=== PATIENT | male | born 1955 | race African-American/Black ===

== ENCOUNTER 2024-11-17 21:42 | Inpatient (IN) | payer OTHER, MEDICARE ==
[~2024-11-17] VITALS: Ht 182.9 cm; Wt 108.4 kg
[~2024-11-17 21:42] MED LIST: COR12 PO; COR6 PO; DIGO-34 PO; DILT30TA37 PO; DILT60TA35 PO; IMOD PO; LISI40TA21 PO; RIVA20TA PO
[2024-11-17 22:17] VITALS: O2SAT 98
[2024-11-17 23:09] LABS: BASOPHILS % 0.4 % (0.0-2.0); EOSINOPHILS % 2.5 % (0.0-5.0); HEMATOCRIT. 42.3 % (42.0-52.0); HEMOGLOBIN. 14.1 g/dL (14.0-18.0); LYMPHOCYTES % 20.9 % (20.0-50.0); MEAN PLATELET VOLUME 7.9 fl (7.4-10.4); MONOCYTES % 10.0 % (2.0-8.0); NEUTROPHILS % 66.2 % (40.0-76.0); PLATELET 396 x1000/uL (130-400); RED BLOOD CELL COUNT 4.40 mill/uL (4.7-6.1); RED CELL DISTRIBUTION WIDTH 13.8 % (11.6-14.6)
[2024-11-17 23:23] LABS: CREATININE 1.4 mg/dL (0.6-1.3); TROPONIN I HIGH SENSITIVITY 21 ng/L (3.0-53); UREA NITROGEN BLOOD 15 mg/dL (9-23)
[2024-11-17 23:25] LABS: ASPARTATE AMINOTRANSFERASE 19 IU/L (<34); BILIRUBIN DIRECT 0.3 mg/dL (<=3.0); BILIRUBIN TOTAL 0.7 mg/dL (0.1-1.0); PROTEIN TOTAL 8.4 g/dL (6.0-8.3)
[2024-11-18] VITALS (7 sets, daily range): BP systolic 97–121; BP diastolic 50–80; PULSE 59–96; RESP 17–18; TEMP 36.1956–37.3; O2SAT 96–100
[2024-11-18] MEDS ORDERED: SACU1TAB7 PO (00:17)
[2024-11-18] MEDS ORDERED: ATOR10TA69 PO (00:17)
[2024-11-18] MEDS ORDERED: SPIR25TA6 PO (00:17)
[2024-11-18] MEDS ORDERED: DAPA10TA PO (00:17)
[2024-11-18] MEDS ORDERED: METF-1149 PO (00:17)
[2024-11-18] MEDS ORDERED: AMLO10TA80 PO (00:17)
[2024-11-18] MEDS ORDERED: FURO40TA5 PO (00:17)
[2024-11-18] MEDS ORDERED: RIVAROXABAN 10 MG TABLET PO ONE (00:30)
[2024-11-18] MEDS: ATORVASTATIN CALCIUM 10MG TABLET PO ONE (00:55)
[2024-11-18] MEDS: DIGOXIN 125MCG TABLET PO ONE (00:55)
[2024-11-18] MEDS: RIVAROXABAN 20 MG TABLET PO NR (00:55)
[2024-11-18] MEDS: CARVEDILOL 12.5MG TABLET PO ONE (00:55)
[2024-11-18 01:12] LABS: TROPONIN I HIGH SENSITIVITY 19 ng/L (3.0-53)
[2024-11-18 01:12] LABS: CLARITY URINE CLOUDY (CLEAR); COLOR URINE YELLOW (YELLOW); GLUCOSE URINE 3+ (NEGATIVE); KETONES URINE NEGATIVE (NEGATIVE); LEUKOCYTE ESTERASE URINE 2+ (NEGATIVE); NITRITE URINE POSITIVE (NEGATIVE); OCCULT BLOOD URINE 1+ (NEGATIVE); PH URINE 5.5 (4.5-8.0); PROTEIN URINE TRACE (NEGATIVE); SPECIFIC GRAVITY URINE 1.034 (1.005-1.030); UROBILINOGEN URINE 1.0 E.U./dL (0.2-1.0)
[2024-11-18] MEDS: IOHEXOL-300 100 ML BOTTLE ONE (01:27)
[2024-11-18] MEDS: CEFTRIAXONE 1GM/50ML 50 ML IV NR (02:07)
[2024-11-18 02:43] LABS: RBC URINE 0-2 /hpf (0-2); WBC URINE TNTC /hpf (0-2)
[2024-11-18 02:44] LABS: BACTERIA URINE 2+; SQUAMOUS EPITHELIAL CELL URINE FEW /lpf (RARE/1+)
[2024-11-18] MEDS ORDERED: CLONIDINE 0.1MG TABLET PO PRN (08:15)
[2024-11-18] MEDS ORDERED: ONDANSETRON HCL 4MG/2ML INJ IV PRN (08:15)
[2024-11-18] MEDS ORDERED: DOCUSATE SODIUM 100MG CAPSULE PO PRN (08:15)
[2024-11-18] MEDS ORDERED: DEXTROSE 50% WATER 50ML SYRINGE IV PRN (08:15)
[2024-11-18] MEDS ORDERED: GUAIFENESIN 200MG/10ML SUGAR FREE UDC PO PRN (08:15)
[2024-11-18] MEDS ORDERED: IPRATROPIUM/ALBUTEROL 0.5-3(2.5)MG/3ML NEB HHN PRN (08:15)
[2024-11-18] MEDS ORDERED: ACETAMINOPHEN 325MG TABLET PO PRN (08:15)
[2024-11-18] MEDS: SODIUM CHLORIDE 0.9% 1,000 ML IV SCH (09:36)
[2024-11-18] MEDS: SACUBITRIL/VALSARTAN 49MG/51MG TABLET PO SCH (10:00)
[2024-11-18] MEDS: FUROSEMIDE 40MG TABLET PO SCH (10:00)
[2024-11-18] MEDS: ENOXAPARIN 30MG/0.3ML SYR SUBCUT SCH (10:51)
[2024-11-18 10:55] LABS: *AMPHETAMINES SCREEN URINE NEGATIVE (NEGATIVE); *BARBITURATES SCREEN URINE NEGATIVE (NEGATIVE); *BENZODIAZEPINES SCREEN URINE NEGATIVE (NEGATIVE); *COCAINE SCREEN URINE NEGATIVE (NEGATIVE); CANNABINOID URINE SCREEN NEGATIVE (NEGATIVE); METHADONE URINE SCREEN NEGATIVE (NEGATIVE); OPIATES URINE SCREEN NEGATIVE (NEGATIVE); PHENCYCLIDINE URINE SCREEN NEGATIVE (NEGATIVE)
[2024-11-18 10:56] LABS: ECSTASY MDMA SCREEN URINE NEGATIVE (NEGATIVE)
[2024-11-18] MEDS: BLOOD SUGAR DIAGNOSTIC STRIP TEST SCH (12:10)
[2024-11-18] MEDS: INSULIN LISPRO 100 UNITS/ML SUBCUT SCH (12:40)
[2024-11-18] MEDS: TRIAMCINOLONE ACETONIDE 0.1 % OINT 15GM TOP SCH (15:10)
[2024-11-18] MEDS ORDERED: RIVAROXABAN 10 MG TABLET PO SCH (17:00)
[2024-11-18] MEDS: DILTIAZEM HCL 30MG TABLET PO SCH (18:30)
[2024-11-18] MEDS: CARVEDILOL 12.5MG TABLET PO SCH (20:53)
[2024-11-18 21:00] LABS: TROPONIN I HIGH SENSITIVITY 20 ng/L (3.0-53)
[2024-11-18] MEDS: PIPERACILLIN/TAZO 3.375G/50ML 50 ML IV SCH (21:09)
[2024-11-19] MEDS ORDERED: CEFTRIAXONE 1GM/50ML 50 ML IV SCH ×2 (01:00→08:00)
[2024-11-19 04:00] VITALS: BP 96/64; PULSE 62; RESP 18; TEMP 36.5; O2SAT 99
[2024-11-19] MEDS: ACETAMINOPHEN 325MG TABLET PO PRN (04:48)
[2024-11-19 07:43] LABS: BASOPHILS % 0.1 % (0.0-2.0); EOSINOPHILS % 1.8 % (0.0-5.0); HEMATOCRIT. 38.8 % (42.0-52.0); HEMOGLOBIN. 13.1 g/dL (14.0-18.0); LYMPHOCYTES % 7.2 % (20.0-50.0); MEAN PLATELET VOLUME 8.4 fl (7.4-10.4); MONOCYTES % 7.1 % (2.0-8.0); NEUTROPHILS % 83.8 % (40.0-76.0); PLATELET 317 x1000/uL (130-400); RED BLOOD CELL COUNT 4.12 mill/uL (4.7-6.1); RED CELL DISTRIBUTION WIDTH 13.5 % (11.6-14.6)
[2024-11-19 08:00] VITALS: BP 108/56; PULSE 89; RESP 20; TEMP 36.3; O2SAT 100
[2024-11-19 08:10] LABS: CREATININE 1.1 mg/dL (0.6-1.3)
[2024-11-19 08:11] LABS: LDL CHOLESTEROL 73 mg/dL (5-100); TRIGLYCERIDE 105 mg/dL (0-150); TROPONIN I HIGH SENSITIVITY 18 ng/L (3.0-53); UREA NITROGEN BLOOD 13 mg/dL (9-23)
[2024-11-19 08:12] LABS: ASPARTATE AMINOTRANSFERASE 27 IU/L (<34)
[2024-11-19 08:13] LABS: BILIRUBIN DIRECT 0.5 mg/dL (<=3.0); BILIRUBIN TOTAL 1.2 mg/dL (0.1-1.0); PROTEIN TOTAL 7.1 g/dL (6.0-8.3)
[2024-11-19 08:14] LABS: T4 FREE 1.26 ng/dL (0.89-1.76)
[2024-11-19] MEDS: TAMSULOSIN HCL 0.4MG SR CAPSULE PO SCH (08:36)
[2024-11-19 09:15] LABS: INR 1.2
[2024-11-19 11:44] VITALS: BP 115/58; PULSE 91; RESP 18; TEMP 36.6; O2SAT 98
[2024-11-19] MEDS: DILTIAZEM HCL 60MG TABLET PO SCH (11:45)
[2024-11-19] MEDS: MEGESTROL ACETATE 400 MG/10 ML UDC PO SCH (11:45)
[2024-11-19] MEDS ORDERED: DILTIAZEM HCL 60MG TABLET PO SCH (12:00)
[2024-11-19] MEDS: FUROSEMIDE 40MG TABLET PO SCH (13:14)
[2024-11-19 15:45] VITALS: BP 100/56; PULSE 90; RESP 17; TEMP 36.7; O2SAT 99
[2024-11-19 20:00] VITALS: BP 98/49; PULSE 92; RESP 18; TEMP 36.7; O2SAT 98
[2024-11-20 00:17] VITALS: BP 116/60; PULSE 83; RESP 18; TEMP 37; O2SAT 98
[2024-11-20 04:00] VITALS: BP 112/61; PULSE 86; RESP 16; TEMP 36.2; O2SAT 99
[2024-11-20 08:00] VITALS: BP 111/68; PULSE 104; RESP 18; TEMP 36.6; O2SAT 100
[2024-11-20 08:13] LABS: BASOPHILS % 0.3 % (0.0-2.0); EOSINOPHILS % 2.9 % (0.0-5.0); HEMATOCRIT. 36.0 % (42.0-52.0); HEMOGLOBIN. 12.0 g/dL (14.0-18.0); LYMPHOCYTES % 24.0 % (20.0-50.0); MEAN PLATELET VOLUME 8.0 fl (7.4-10.4); MONOCYTES % 10.7 % (2.0-8.0); NEUTROPHILS % 62.1 % (40.0-76.0); PLATELET 292 x1000/uL (130-400); RED BLOOD CELL COUNT 3.78 mill/uL (4.7-6.1); RED CELL DISTRIBUTION WIDTH 13.7 % (11.6-14.6)
[2024-11-20 08:27] LABS: CREATININE 1.1 mg/dL (0.6-1.3); UREA NITROGEN BLOOD 14 mg/dL (9-23)
[2024-11-20] MEDS ORDERED: GADOTERATE MEGLUMINE 5 MMOL/10 ML VIAL IV ONE (11:10)
[2024-11-20 12:00] VITALS: BP 115/62; PULSE 98; RESP 18; TEMP 36.8; O2SAT 99
[2024-11-20 16:00] VITALS: BP 119/73; PULSE 100; RESP 18; TEMP 36.6; O2SAT 96
[2024-11-20 20:00] VITALS: BP 110/81; PULSE 69; RESP 16; TEMP 36.5; O2SAT 100
[2024-11-21] VITALS (50 sets, daily range): BP systolic 71–168; BP diastolic 41–146; PULSE 82–148; RESP 11–28; TEMP 36.1–37.3; O2SAT 96–100
[2024-11-21] MEDS ORDERED: SODIUM CHLORIDE 0.9% 250 ML IV ONE (05:35)
[2024-11-21] MEDS: SODIUM CHLORIDE 0.9% 250 ML IV ONE (06:15)
[2024-11-21] MEDS ORDERED: NOREPINEPHRINE 32 MG in DEXT 5% WATER 218 ML IV PRN (06:30)
[2024-11-21 06:34] LABS: BASOPHILS % 0.3 % (0.0-2.0); EOSINOPHILS % 2.3 % (0.0-5.0); HEMATOCRIT. 37.6 % (42.0-52.0); HEMOGLOBIN. 12.5 g/dL (14.0-18.0); LYMPHOCYTES % 24.3 % (20.0-50.0); MEAN PLATELET VOLUME 7.8 fl (7.4-10.4); MONOCYTES % 12.0 % (2.0-8.0); NEUTROPHILS % 61.1 % (40.0-76.0); PLATELET 272 x1000/uL (130-400); RED BLOOD CELL COUNT 4.00 mill/uL (4.7-6.1); RED CELL DISTRIBUTION WIDTH 13.5 % (11.6-14.6)
[2024-11-21 06:50] LABS: CREATININE 1.1 mg/dL (0.6-1.3); UREA NITROGEN BLOOD 15 mg/dL (9-23)
[2024-11-21 06:52] LABS: ASPARTATE AMINOTRANSFERASE 13 IU/L (<34); BILIRUBIN TOTAL 0.6 mg/dL (0.1-1.0); PROTEIN TOTAL 7.1 g/dL (6.0-8.3)
[2024-11-21] MEDS ORDERED: NOREPINEPHRINE 8MG/250ML PMX 250 ML IV ONE (07:58)
[2024-11-21] MEDS ORDERED: ROCURONIUM BROMIDE 10MG/ML VIAL 5ML IV ONE (08:04)
[2024-11-21] MEDS ORDERED: ALBUMIN HUMAN 12.5G/250ML (5%) IV ONE (08:10)
[2024-11-21] MEDS ORDERED: PROPOFOL 10MG/ML 100ML 100 ML IV ONE (08:12)
[2024-11-21] MEDS ORDERED: PHENYLEPHRINE HCL 10MG/ML 1ML IV ONE (08:28)
[2024-11-21] MEDS ORDERED: ACETAMINOPHEN 1000MG/100ML 100 ML IV ONE (08:41)
[2024-11-21] MEDS ORDERED: KETAMINE HCL 50 MG/ML 10ML ONE (08:41)
[2024-11-21] MEDS ORDERED: CALCIUM CHLORIDE 1GM/10ML SYR IV ONE (08:43)
[2024-11-21] MEDS ORDERED: ALBUMIN HUMAN 12.5GM/50ML (25%) IV ONE ×2 (08:52)
[2024-11-21] MEDS ORDERED: DEXAMETHASONE 4MG/ML 1ML VIAL ONE (09:11)
[2024-11-21] MEDS ORDERED: ONDANSETRON HCL 4MG/2ML INJ ONE (09:11)
[2024-11-21] MEDS ORDERED: FUROSEMIDE 40MG/4ML VIAL ONE (09:12)
[2024-11-21] MEDS ORDERED: LEVOFLOXACIN 500MG PREMIX 100 ML IV SCH (09:45)
[2024-11-21] MEDS ORDERED: LEVOFLOXACIN 750MG PREMIX 150 ML IV SCH (10:30)
[2024-11-21] MEDS: LEVOFLOXACIN 750MG PREMIX 150 ML IV SCH (13:18)
[2024-11-21] MEDS: DILTIAZEM HCL 5MG/ML 5ML VIAL IV SCH (13:52)
[2024-11-21] MEDS ORDERED: MORPHINE SULFATE 2 MG/ML INJ (NOT FOR IM USE) IV PRN (14:00)
[2024-11-21] MEDS: MORPHINE SULFATE 4 MG/ML INJ (FOR IV/IM USE) IV SCH (14:06)
[2024-11-21] MEDS ORDERED: NALOXONE HCL 0.4MG/ML VIAL IV PRN (14:15)
[2024-11-21] MEDS ORDERED: HYDROMORPHONE HCL/PF 2MG/ML INJ IV PRN (14:15)
[2024-11-21] MEDS: DILTIAZEM HCL 125 MG in DEXT 5% WATER 100 ML IV SCH (16:24)
[2024-11-21] MEDS ORDERED: DILTIAZEM HCL 5MG/ML 5ML VIAL IV PRN (16:30)
[2024-11-22] VITALS (60 sets, daily range): BP systolic 84–144; BP diastolic 55–113; PULSE 78–131; RESP 12–28; TEMP 36.8–37; O2SAT 96–100
[2024-11-22 06:03] LABS: BASOPHILS % 0.0 % (0.0-2.0); EOSINOPHILS % 0.0 % (0.0-5.0); HEMATOCRIT. 39.3 % (42.0-52.0); HEMOGLOBIN. 13.2 g/dL (14.0-18.0); LYMPHOCYTES % 7.9 % (20.0-50.0); MEAN PLATELET VOLUME 8.4 fl (7.4-10.4); MONOCYTES % 6.6 % (2.0-8.0); NEUTROPHILS % 85.5 % (40.0-76.0); PLATELET 343 x1000/uL (130-400); RED BLOOD CELL COUNT 4.19 mill/uL (4.7-6.1); RED CELL DISTRIBUTION WIDTH 13.5 % (11.6-14.6)
[2024-11-22 06:35] LABS: CREATININE 1.1 mg/dL (0.6-1.3); UREA NITROGEN BLOOD 19 mg/dL (9-23)
[2024-11-22 06:37] LABS: ASPARTATE AMINOTRANSFERASE 15 IU/L (<34); BILIRUBIN TOTAL 1.0 mg/dL (0.1-1.0); PROTEIN TOTAL 7.4 g/dL (6.0-8.3)
[2024-11-22] MEDS ORDERED: DILTIAZEM HCL 125 MG in DEXT 5% WATER 100 ML IV SCH (09:00)
[2024-11-22] MEDS: DILTIAZEM HCL 30MG TABLET PO SCH (12:05)
[2024-11-22] MEDS: DILTIAZEM 125MG in DEXTROSE 5% WATER 125ML IV SCH (13:34)
[2024-11-22] MEDS: CARVEDILOL 3.125 MG TABLET PO SCH (21:43)
[2024-11-23] VITALS (12 sets, daily range): BP systolic 90–146; BP diastolic 63–124; PULSE 85–117; RESP 14–24; TEMP 36.5–36.7; O2SAT 96–100
[2024-11-23] MEDS ORDERED: DILTIAZEM HCL 30MG TABLET PO SCH
[2024-11-23 04:57] LABS: CREATININE 1.2 mg/dL (0.6-1.3); UREA NITROGEN BLOOD 22 mg/dL (9-23)
[2024-11-23 04:59] LABS: ASPARTATE AMINOTRANSFERASE 15 IU/L (<34)
[2024-11-23 05:00] LABS: BILIRUBIN TOTAL 0.7 mg/dL (0.1-1.0); PROTEIN TOTAL 7.0 g/dL (6.0-8.3)
[2024-11-23] MEDS ORDERED: DILTIAZEM HCL 60MG TABLET PO SCH (06:00)
[2024-11-23 07:02] LABS: BASOPHILS % 0.3 % (0.0-2.0); EOSINOPHILS % 0.3 % (0.0-5.0); HEMATOCRIT. 37.4 % (42.0-52.0); HEMOGLOBIN. 12.2 g/dL (14.0-18.0); LYMPHOCYTES % 15.5 % (20.0-50.0); MEAN PLATELET VOLUME 8.4 fl (7.4-10.4); MONOCYTES % 9.5 % (2.0-8.0); NEUTROPHILS % 74.4 % (40.0-76.0); PLATELET 288 x1000/uL (130-400); RED BLOOD CELL COUNT 3.99 mill/uL (4.7-6.1); RED CELL DISTRIBUTION WIDTH 14.0 % (11.6-14.6)
[2024-11-23] MEDS: AMLODIPINE 10MG TABLET PO SCH (08:36)
[2024-11-23] MEDS: FUROSEMIDE 40MG TABLET PO SCH (08:36)
[2024-11-23] MEDS ORDERED: LISINOPRIL 40MG TABLET PO SCH (09:00)
[2024-11-23] MEDS ORDERED: SACUBITRIL/VALSARTAN 49MG/51MG TABLET PO SCH (09:00)
[2024-11-23] MEDS ORDERED: SPIRONOLACTONE 25MG TABLET PO SCH (09:00)
[2024-11-23] MEDS ORDERED: CARVEDILOL 12.5MG TABLET PO SCH (09:00)
[2024-11-23] MEDS ORDERED: CARVEDILOL 6.25 MG TABLET PO SCH (09:00)
[2024-11-23] MEDS: CARVEDILOL 3.125 MG TABLET PO NR (12:00)
[2024-11-23] MEDS ORDERED: RIVAROXABAN 20 MG TABLET PO SCH ×3 (17:00)
[2024-11-23] MEDS ORDERED: DIGOXIN 125MCG TABLET PO SCH (18:00)
[2024-11-23] MEDS: ATORVASTATIN CALCIUM 10MG TABLET PO SCH (20:23)
[2024-11-23] MEDS: CARVEDILOL 3.125 MG TABLET PO SCH (20:24)
[2024-11-24] VITALS (10 sets, daily range): BP systolic 86–133; BP diastolic 50–110; PULSE 88–110; RESP 6–27; TEMP 36.3–36.7; O2SAT 98–100
[2024-11-24 07:03] LABS: BASOPHILS % 0.5 % (0.0-2.0); EOSINOPHILS % 0.8 % (0.0-5.0); HEMATOCRIT. 36.3 % (42.0-52.0); HEMOGLOBIN. 12.0 g/dL (14.0-18.0); LYMPHOCYTES % 20.7 % (20.0-50.0); MEAN PLATELET VOLUME 7.8 fl (7.4-10.4); MONOCYTES % 11.9 % (2.0-8.0); NEUTROPHILS % 66.1 % (40.0-76.0); PLATELET 280 x1000/uL (130-400); RED BLOOD CELL COUNT 3.85 mill/uL (4.7-6.1); RED CELL DISTRIBUTION WIDTH 13.7 % (11.6-14.6)
[2024-11-24 07:41] LABS: CREATININE 0.9 mg/dL (0.6-1.3); UREA NITROGEN BLOOD 20 mg/dL (9-23)
[2024-11-24] MEDS: AMLODIPINE 5MG TABLET PO SCH (08:50)
[2024-11-24 09:00] LABS: ERYTHROCYTE SEDIMENTATION RATE 77 mm/hr (0-20)
[2024-11-24] MEDS ORDERED: LEVO750T68 MT (13:21)
== END 2024-11-24 15:15 | disposition home or self-care (01) | DRG 853 ==
LOC: ER 21:42 → 8WST 11-18 02:01 → EDBEDREQ 11-18 02:03 → EDBEDREQTM 11-18 02:03 → EDBEDREQDT 11-18 02:03 → ENRESERV 11-18 03:11 → MICUSO 11-21 11:15 → 5EST 11-22 22:49
PROVIDERS: ADMIT Internal Medicine; ATTEND Internal Medicine
PROC: 0VB08ZZ Excision of Prostate, Via Natural or Artificial Opening Endoscopic (ICD-10-PCS; principal; 2024-11-21)
DX: A41.9 Sepsis, unspecified organism (principal); I50.23 Acute on chronic systolic (congestive) heart failure; I42.0 Dilated cardiomyopathy; N39.0 Urinary tract infection, site not specified; N41.2 Abscess of prostate; N17.9 Acute kidney failure, unspecified; I48.20 Chronic atrial fibrillation, unspecified; B96.20 Unspecified Escherichia coli [E. coli] as the cause of diseases classified elsewhere; E11.9 Type 2 diabetes mellitus without complications; I11.0 Hypertensive heart disease with heart failure; K57.30 Diverticulosis of large intestine without perforation or abscess without bleeding; L30.9 Dermatitis, unspecified; D64.9 Anemia, unspecified; Z79.01 Long term (current) use of anticoagulants; Z79.84 Long term (current) use of oral hypoglycemic drugs; Z79.899 Other long term (current) drug therapy; Z90.79 Acquired absence of other genital organ(s); Z95.810 Presence of automatic (implantable) cardiac defibrillator
CPT/HCPCS: 36415; 71045; 72197; 74177; 76770; 80048; 80053; 80061; 80076; 80162; 80305; 81003; 82962; 83036; 83605; 83735; 83880; 84153; 84439; 84443; 84484; 85025; 85651; 86141; 86850; 86900; 86920; 87077; 87186; 88305; 93005; 93306; 99291; A4606; A9577; C1769; J0696; J1100; J1650; J1815; J1938; J1956; J2270; J2371; J2405; J2543; J2704; J3490; J7030; J7040; J7060; P9041; P9047; Q9967; A4217; J0131